=== PATIENT | male | born 1980 | race Caucasian/White ===

== ENCOUNTER 2016-08-30 14:32 | Day surgery (SDC) | payer MEDICAID ==
[2016-08-30] MEDS ORDERED: LIDOCAINE 1% 5 ML SDV ID PRN (15:20)
[2016-08-30] MEDS ORDERED: LR 1,000 ML IV ONE (15:20)
[2016-08-30] MEDS ORDERED: MIDAZOLAM 2 MG/2 ML VIAL ONE (16:50)
[2016-08-30] MEDS ORDERED: fentaNYL 100 MCG/2 ML INJ ONE (16:56)
[2016-08-30] MEDS ORDERED: PROPOFOL 200 MG/20 ML VIAL ONE (16:57)
--- NOTE | 2016-08-30 18:46 | GPN ---
[f rep st] PROCEDURE NOTE PREPROCEDURE DIAGNOSES: Abdominal pain, gas, and bloating. POSTPROCEDURE DIAGNOSES: Abdominal pain, gas, and bloating, normal colonoscopy. PROCEDURE: Colonoscopy. MEDICATIONS: Monitored anesthesia care. INDICATIONS: The patient is a 35-year-old gentleman with a history of gas and bloating, as well as c hronic abdominal pain. He has been tested, for small bowel bacterial overgrowth which was positive a nd treated with Xifaxan. He previously underwent upper endoscopy. He continues to have symptoms and is here for colonoscopy. The risks and benefits of the procedure were discussed with the patient an d consent obtained. The risks include, but are not limited to, bleeding, perforation, missed lesions , and sedation. The patient is ASA class 2. DESCRIPTION OF PROCEDURE: The pediatric colonoscope was advanced into the terminal ileum, which appe ared normal. The appendiceal orifice, IC valve, cecum, ascending colon, hepatic flexure, transverse colon, splenic flexure, descending colon, sigmoid colon, and rectum. Retroflexed views of the rectum were normal. IMPRESSION: Normal colonoscopy, including terminal ilium. RECOMMENDATIONS: 1. Discharge home with escort. 2. Advance diet as tolerated. 3. Continue current medications. 4. Repeat colonoscopy at age 48, no recall. 5. Trial of Bentyl 20 mg orally twice per day for possible irritable bowel syndrome. 6. Follow up in our GI clinic as previously scheduled. Thank you for allowing me to participate in the care of your patient. Please do not hesitate to call with questions. /[id number]/MODL
== END 2016-08-30 18:05 | disposition home or self-care (01) ==
LOC: FSGY 14:32
PROVIDERS: ATTEND Internal Medicine Gastroenterology
PROC: 0DJD8ZZ Inspection of Lower Intestinal Tract, Via Natural or Artificial Opening Endoscopic (ICD-10-PCS; principal; 2016-08-30 16:15)
DX: R10.11 Right upper quadrant pain (principal); R14.0 Abdominal distension (gaseous); Z88.0 Allergy status to penicillin
CPT/HCPCS: J2250; J2704; J3010

== ENCOUNTER → 2016-09-06 | Outpatient (CLI) | payer MEDICAID ==
[~2016-09-06] MED LIST: IOPAMIDOL (ISOVUE-300) 100 ML BTL IV ONE
--- NOTE | 2016-09-06 18:10 | CT ---
CT Abdomen and Pelvis With Contrast History: Abdominal pain, normal colonoscopy in July. Comparison: None available. Technique: Axial contrast-enhanced images were obtained through the abdomen and pelvis following the uneventful administration of oral and 90 mL Isovue-300 intravenous contrast. Dose reduction techniqu es were utilized. Findings: Abdomen: There is mild basilar atelectasis. Heart size is normal. The liver, gallbladder, spleen, pancreas, adrenals, and kidneys are normal. Mild gastric distention is noted. The colon and small bowel are normal caliber without evidence of ob struction. The appendix is normal. There is no free fluid or air. A tiny fat-containing periumbilical hernia is present. The aorta is normal caliber . The IVC, hepatic, portal, splenic, and superior mesenteric veins are pa tent. No pathologically enlarged lymph nodes are identified. The bones are normal. Pelvis: The bladder is normal. No pathologically enlarged lymph nodes are identified. Multiple phleb oliths are present. No aggressive osseous lesions are identified. Impression: 1. No definite etiology for the patient's pain. 2. Mild gastric distention, with no evidence of obstruction. 3. Additional findings as above.
== END ==
LOC: FIMAGING 15:44
PROVIDERS: ATTEND Physician Assistant
DX: R10.84 Generalized abdominal pain (principal)
CPT/HCPCS: 82784-90; 83516-90; Q9967

== ENCOUNTER → 2016-10-09 | Outpatient (CLI) | payer MEDICAID | LOC: FIMAGING 15:04 | PROVIDERS: ATTEND Internal Medicine | DX: M75.92 Shoulder lesion, unspecified, left shoulder (principal); G89.29 Other chronic pain ==